=== PATIENT | female | born 1975 ===

== ENCOUNTER 2017-12-07 13:16 | Emergency (ER) | payer BC, OTHER ==
[2017-12-07 13:26] VITALS: BP 120/72
[2017-12-07] MEDS ORDERED: Lidocaine 2% 10 ML* VIAL INJ ONE (13:40)
[2017-12-07] MEDS ORDERED: Lidocaine 2% PF * 5 ML VIAL INJ ONE (13:44)
--- NOTE | 2017-12-07 13:44 | UC ---
Laceration HPI - HPI Summary HPI Summary: Patient presents s/p laceration of the pad of her left thumb, she cut it opening a can of tuna-fish. She denies any numbness, but does states the tip of the thumb is tingling. She is able to move the thumb. She has bleeding is controlled. Last tetanus unknown. - History Of Current Complaint Chief Complaint: UCUpperExtremity Stated Complaint: L THUMB LAC Time Seen by Provider: 12/07/17 13:24 Hx Obtained From: Patient Laceration Location: Finger Mechanism Of Injury: Sharp Trauma Onset/Duration: Sudden Onset, Lasting Hours Severity: Moderate Pain Intensity: 2 Aggravating Factors: Movement - Allergies/Home Medications Allergies/Adverse Reactions: Allergies Allergy/AdvReac Type Severity Reaction Status Date / Time No Known Allergies Allergy Verified 12/07/17 13:26 Home Medications: Home Medications NK [No Home Medications Reported] 12/07/17 [History Confirmed 12/07/17] PMH/Surg Hx/FS Hx/Imm Hx Previously Healthy: Yes - Surgical History Surgical History: Yes Surgery Procedure, Year, and Place: vein stripping - Family History Known Family History: Negative: Cardiac Disease, Hypertension, Respiratory Disease - Social History Alcohol Use: Occasionally Substance Use Type: None Smoking Status (MU): Never Smoked Tobacco Review of Systems Constitutional: Negative Skin: Other - left thumb pad laceration Eyes: Negative ENT: Negative Respiratory: Negative Cardiovascular: Negative Gastrointestinal: Negative Genitourinary: Negative Motor: Negative Neurovascular: Negative Musculoskeletal: Negative Neurological: Negative Psychological: Negative Is Patient Immunocompromised?: No All Other Systems Reviewed And Are Negative: Yes Physical Exam Triage Information Reviewed: Yes Appearance: Well-Appearing Vital Signs: Initial Vital Signs Temp 98.4 F 12/07/17 13:23 Pulse 64 12/07/17 13:23 Resp 18 12/07/17 13:23 BP 120/72 12/07/17 13:23 Pulse Ox 100 12/07/17 13:23 Eye Exam: Normal ENT Exam: Normal Neck exam: Normal Neck: Positive: 1 Respiratory Exam: Normal Cardiovascular Exam: Normal Abdominal Exam: Normal Musculoskeletal Exam: Normal Neurological Exam: Normal Psychological Exam: Normal Skin Exam: Normal Laceration Repair - Laceration Repair 1 Description: Irregular Laceration Size After Repair: Length (cm) - 1.0, Width (mm) - 3.0, Depth (mm) - 0.5 Modified For Repair: No Anesthesia Used: 2.0% Lido Cleansing Completed Via Routine Prep: Yes Irrigation With Pressure Irrigation Device: Yes Closure Material: Sutures - 4 simple interrupted sutures. Closure Method: Single Layer Suture Of: Skin Suture Type: Nylon Laceration Course/Dx - Course/Dx Course Of Treatment: Patient presents with thumb laceration of the left thumb. Concent and time out performed, digital block performed with 10ml of 2% idocaine. Once insensate the wound was irrigated with hebilcens and saline. xrays were obtianed and were negative for FB or fracture.5.0 black monfiliment used to close wound with 4 simple interrupted sutures. Tetanus updated. Wound care and suture care provided and included to keep the wound clean and dry, change dressing daily, wound re-check in 48 hours. Monitor for signs and symptoms of infection; including increased redness, pain, swelling or drainage. If these symtpoms develop she was told to go to the ER immediately for re- evaluation. She tolerated the procedure well, minimal blood loss. All questions and concerns addressed and answered. - Differential Dx - Laceration/Wound Differental Diagnoses: Laceration, Other - care of your stitches tetanus vaccine Provider Diagnoses: laceration. care of your stitches. tetanus vaccine Discharge - Sign-Out/Discharge Documenting (check all that apply): Patient Departure - Discharge Plan Condition: Stable Disposition: HOME Patient Education Materials: Diphtheria/Acellular Pertussis/Tetanus Vaccine ( By injection), Care For Your Stitches (DC), Laceration (DC) Referrals: No Primary Care Phys,NOPCP [Primary Care Provider] - Additional Instructions: Patient will need to have a wound recheck in 48 hours. - Billing Disposition and Condition Condition: STABLE Disposition: Home Images Hands: 1 - laceration
[2017-12-07] MEDS ORDERED: Tetan/Diph/Pertus SYR(Tdap)* 0.5 ML SYR(BOOSTRIX) use SYR IM ONE (13:46)
--- NOTE | 2017-12-07 14:30 | RAD ---
INDICATION: Left thumb injury COMPARISON: None TECHNIQUE: AP, lateral, and oblique views were obtained. FINDINGS: There is no acute fracture or foreign body. There is a laceration about the soft tissues along the volar aspect of the distal phalanx. IMPRESSION: LACERATION. NO FRACTURE OR FOREIGN BODY.
== END 2017-12-07 14:50 | disposition home or self-care (01) ==
LOC: UCEAST 13:16
DX: S61.012A Laceration without foreign body of left thumb without damage to nail, initial encounter (principal); W45.8XXA Other foreign body or object entering through skin, initial encounter; Y92.9 Unspecified place or not applicable
CPT/HCPCS: 12001; 90715; 99202; G0463

== ENCOUNTER 2017-12-14 10:29 | Emergency (ER) | payer OTHER ==
[2017-12-14 10:56] VITALS: BP 116/78
--- NOTE | 2017-12-14 11:37 | UC ---
HPI Wound/Suture Re-check - HPI Summary HPI Summary: 42 y/o female presents to the urgent for suture removal of laceration of her left thumb on 12/07/2017. Pt denies sings of infection and can move thumb w/o any difficulty. Pt denies fever, numbness or tingling sensation, SOB, chest pain , abdominal pain, N/v/D. - History Of Current Complaint Chief Complaint: UCLaceration Stated Complaint: SUTURE REMOVAL Time Seen by Provider: 12/14/17 11:29 Hx Obtained From: Patient Hx Last Menstrual Period: 12/03/17 Onset/Duration: Sudden Onset, Lasting Weeks - 1 week, Resolved Severity: Mild Pain Intensity: 0 Surgery Date: 12/07/17 - Allergies/Home Medications Allergies/Adverse Reactions: Allergies Allergy/AdvReac Type Severity Reaction Status Date / Time No Known Allergies Allergy Verified 12/14/17 10:56 PMH/Surg Hx/FS Hx/Imm Hx Previously Healthy: Yes - Pt denies PMHX - Surgical History Surgical History: Yes Surgery Procedure, Year, and Place: vein stripping - Family History Known Family History: Positive: None - Pt denies FMHX Negative: Cardiac Disease, Hypertension, Respiratory Disease - Social History Occupation: Employed Full-time Lives: With Family Alcohol Use: Occasionally Substance Use Type: None Smoking Status (MU): Never Smoked Tobacco Review of Systems Constitutional: Negative Skin: Other - left thumb w/ 4 sutures in placed, Eyes: Negative ENT: Negative Respiratory: Negative Cardiovascular: Negative Gastrointestinal: Negative Genitourinary: Negative Motor: Negative Neurovascular: Negative Musculoskeletal: Negative Neurological: Negative Psychological: Negative Is Patient Immunocompromised?: No All Other Systems Reviewed And Are Negative: Yes Physical Exam Triage Information Reviewed: Yes Appearance: Well-Appearing, No Pain Distress, Well-Nourished Vital Signs: Initial Vital Signs Temp 98 F 12/14/17 10:54 Pulse 63 12/14/17 10:54 Resp 16 12/14/17 10:54 BP 116/78 12/14/17 10:54 Pulse Ox 100 12/14/17 10:54 Vital Signs Reviewed: Yes Eye Exam: Normal ENT Exam: Normal Dental Exam: Normal Neck exam: Normal Respiratory Exam: Normal Cardiovascular Exam: Normal Abdominal Exam: Normal Bowel Sounds: Positive: Present Musculoskeletal Exam: Normal Neurological Exam: Normal Psychological Exam: Normal Skin: Positive: Other - Left distal first phalanx w/ [address]. No signs of infections and FROM of left thumb, sensation WNL, capillary refill brisk, pulses WNL. Course/Dx - Course Course Of Treatment: 42 y/o female presents to the urgent for suture removal of laceration of her left thumb on 12/07/2017. Pt denies sings of infection and can move thumb w/o any difficulty. Pt denies fever, numbness or tingling sensation, SOB, chest pain, abdominal pain, N/v/D. Hx obtaine. Left distal first phalanx w / [address] No signs of infections and FROM of left thumb on examination. Wound healing well, 4 sutures removed w/o any difficulty. Pt tolerated well procedure. wound cleaned with sterile water and bacitracin applied over and cover with sterile gauze. Pt advised if redness, pain or fever develops to return to the urgent care or f/u with PCP for further treatment. Pt understood and agreed with plan of care - Differential Dx - Laceration/Wound Differential Diagnoses: Cellulitis, Healing Wound, Suture Removal Provider Diagnoses: 1- Left thumb suture removal Discharge - Sign-Out/Discharge Documenting (check all that apply): Patient Departure - D/c home - Discharge Plan Condition: Stable Disposition: HOME Patient Education Materials: Acute Wound Care (ED) Referrals: Maxi Jones MD [Primary Care Provider] - If Needed Additional Instructions: 1-Please apply Triple antibiotic oint over the wound. Keep wound clean and dry 3- If you develop fever or redness around your thumb please return to the Urgent care for further management - Billing Disposition and Condition Condition: STABLE Disposition: Home
== END 2017-12-14 11:40 | disposition home or self-care (01) ==
LOC: UCEAST 10:29
DX: S61.012D Laceration without foreign body of left thumb without damage to nail, subsequent encounter (principal); W45.8XXD Other foreign body or object entering through skin, subsequent encounter